=== PATIENT | female | born 1985 | race Caucasian/White ===

== ENCOUNTER 2018-10-27 03:56 | Emergency (ER) | payer SELFPAY ==
[~2018-10-27] VITALS: Ht 165.1 cm; Wt 72.7 kg
[~2018-10-27 03:56] MED LIST: DOCU-144 PO; IBUP-1542 PO; LEVE500T8 PO; OXCA300T3 PO; PNV1TABL32 PO
[2018-10-27 03:57] VITALS: Ht 165.1 cm; Wt 72.7 kg
[2018-10-27] MEDS ORDERED: ONDANSETRON 4 MG INJ IV STA (04:04)
[2018-10-27] MEDS ORDERED: KETOROLAC 30 MG INJ IV STA (04:04)
[2018-10-27] MEDS ORDERED: METOCLOPRAMIDE 10 MG INJ IV ONE (04:30)
--- NOTE | 2018-10-27 04:36 | ERD ---
ER Documentation Chief Complaint Chief Complaint CHRISTOPHER PAREDES,from home,sz unknown amt of time,CROSS,hx sz 8 months ago HPI This is a 33-year-old female with a prior history of seizures, currently on Keppra who is brought in for a seizure. On arrival her seizure had already resolved, she states that she gets them when she does not sleep well, which has been going on for the last couple of days. She endorses a mild headache currently, otherwise she is back to her neurologic baseline. She denies nausea vomiting. ROS All systems reviewed and are negative except as per history of present illness. Medications Home Meds Reported Medications Vit/Fe Fumarate/Fa ( Low Iron Tablet) 1 Tab Tablet, 1 TAB PO DAILY 03/01/15 Docusate Sodium* (Colace*) 100 Mg Capsule, 100 MG PO BID PRN for CONSTIPATION, CAP 03/01/15 Ibuprofen* (Ibuprofen*) 600 Mg Tablet, 600 MG PO Q6H PRN for PAIN, TAB 03/01/15 Oxcarbazepine* (Trileptal*) 300 Mg Tablet, 900 MG PO BID, TAB 03/01/15 Levetiracetam* (Levetiracetam*) 500 Mg Tablet, 2000 MG PO BID, TAB 03/01/15 Allergies Allergies: Coded Allergies: No Known Drug Allergies (Verified Allergy, Mild, 11/16/14) PMhx/Soc History of Surgery: Yes (Appendectomy) Anesthesia Reaction: No Hx Neurological Disorder: Yes (SEIZURE) Hx Respiratory Disorders: No Hx Cardiac Disorders: No Hx Psychiatric Problems: No Hx Miscellaneous Medical Probl: No Hx Alcohol Use: No Hx Substance Use: No Hx Tobacco Use: No Smoking Status: Never smoker Physical Exam Vitals Vital Signs Date Temp Pulse Resp B/P (MAP) Pulse Ox O2 O2 Flow FiO2 Time Delivery Rate 10/27/18 97.6 123 18 135/93 97 03:57 (107) Physical Exam Const: No acute distress Head: Atraumatic Eyes: Normal Conjunctiva ENT: Normal External Ears, Nose and Mouth. Neck: Full range of motion. No meningismus. Resp: Clear to auscultation bilaterally Cardio: Regular rate and rhythm, no murmurs Abd: Soft, non tender, non distended. Normal bowel sounds Skin: No petechiae or rashes Back: No midline or flank tenderness Ext: No cyanosis, or edema Neur: Awake and alert, cranial nerves II through XII intact, strength 5 out of 5 bilaterally, alert and oriented x4 Psych: Normal Mood and Affect Results 24 hrs Laboratory Tests Test 10/27/18 04:00 10/27/18 04:25 Bedside Glucose 122 mg/dL POC Beta HCG, Qualitative NEGATIVE Current Medications Medications Dose Sig/Jackelin Start Time Status Last (Trade) Ordered Route PRN Stop Time Admin Dose Reason Admin Ondansetron 4 mg ONCE STAT 10/27/18 Cancel HCl (Zofran IV 04:04 10/27/18 Inj) 04:05 Ketorolac 30 mg ONCE STAT 10/27/18 DC 10/27/18 Tromethamine IV 04:04 10/27/18 04:33 (Toradol) 04:05 10 mg ONCE ONCE 10/27/18 DC 10/27/18 Metoclopramid IV 04:30 10/27/18 04:16 e HCl 04:31 (Reglan) Procedures/MDM This is a 33-year-old female presents with a seizure episode in the setting of history of epilepsy, on arrival patient had a ready been back to her neurologic baseline, her headache was controlled in the ED, and she had no signs or symptoms concerning for emergent cause of headache such as meningitis or subarachnoid hemorrhage, her test was negative, at discharge the patient was in no acute distress. Departure Diagnosis: Primary Impression: Seizure disorder Condition: PUJA Doe MD Oct 27, 2018 04:36
[2018-10-27 05:37] VITALS: BP 112/78; PULSE 104; RESP 20
[2018-10-27] MEDS ORDERED: LAMO100T PO (05:40)
[2018-10-27] MEDS ORDERED: OXCA300T41 PO (05:40)
== END 2018-10-27 05:37 | disposition home or self-care (01) ==
LOC: E/R 03:56
DX: G40.909 Epilepsy, unspecified, not intractable, without status epilepticus (principal); R40.2142 Coma scale, eyes open, spontaneous, at arrival to emergency department; R40.2362 Coma scale, best motor response, obeys commands, at arrival to emergency department; R40.2252 Coma scale, best verbal response, oriented, at arrival to emergency department
CPT/HCPCS: 81025; 82962; 96374; 96375; 99284; J1885; J2765